=== PATIENT | male | born 1955 | race American Indian/Alaskan Native ===

== ENCOUNTER 2018-05-01 06:28 | Day surgery (SDC) | payer BC ==
[2018-05-01] MEDS ORDERED: NACL 0.9% 500 ML 500 ML IV SCH (07:00)
[2018-05-01] MEDS ORDERED: HEPARIN 10,000 UNITS/10 ML ONE (08:21)
[2018-05-01] MEDS ORDERED: HEPARIN/NS 5000 UNIT/500ML(CATH LAB) 1,000 ML IR ONE (08:21)
[2018-05-01] MEDS ORDERED: SUBLIMAZE ONE (08:21)
[2018-05-01] MEDS ORDERED: VERSED ONE (08:21)
[2018-05-01] MEDS ORDERED: NITROGLYCERIN SYRINGE 0 ML ONE (08:22)
[2018-05-01] MEDS ORDERED: XYLOCAINE 2% INFILTRATI ONE (08:30)
--- NOTE | 2018-05-01 11:04 | Cardiac Catherization Report ---
INDICATION FOR PROCEDURE: The patient is a 63-year-old -[place] gentleman with history of known coronary artery disease, status post bypass surgery done in 2002, also with sequential graft of BURRELL to the second diagonal and LAD, saphenous vein graft to the first diagonal and saphenous vein graft to the PDA. During the surgery, the patient was noted to have significant calcification throughout the vessels. He is getting short of breath on moderate exertion. No chest pain and has abnormal nuclear imaging suggesting lateral wall ischemia. Hence, he is scheduled for cardiac catheterization for definitive diagnosis and treatment. The patient is aware of the procedure, potential complications and alternatives of therapy available. DESCRIPTION OF PROCEDURE: The patient was brought to the catheterization laboratory. He was evaluated for moderate sedation and he was felt to be appropriate and received IV Versed and fentanyl around 9:02 a.m. Subsequently, local anesthesia was given in the right groin and right femoral artery puncture was made using 5-Micronesian micropuncture needle and using fluoroscopy. Initially, a 5-Micronesian sheath was introduced and 5-Micronesian multipurpose catheter was used, but subsequently this was changed to 6-Micronesian sheath and 5-Micronesian multipurpose catheter. Angiograms of the left coronary artery were obtained using JL5 catheter, JR4 catheter was used to obtain the angiograms of the right coronary artery. Vein graft angiograms were obtained using multipurpose catheter. A 5-Micronesian multipurpose catheter was used to obtain the angiograms of the mammary graft. At the end of the procedure, angiograms of the right femoral artery were obtained. When it was felt appropriate 6-Micronesian Perclose device was used in a standard fashion and good hemostasis was achieved without any difficulty. No hematoma noted. The patient tolerated the procedure well. The patient was monitored for sedation after 9:59 a.m. The patient was continuously monitored with hemodynamic monitoring, EKG, and pulse oximetry. No complication was asymptomatic and vital signs have been stable throughout the procedure. Following findings were noted. HEMODYNAMICS: 1. Opening aortic pressure 115/66. Left ventricular pressure 115/24. No gradient across the aortic valve. Estimated ejection fraction 55-60%. 2. Left ventriculogram done in XIONG projection using hand injection showed normal sized left ventricle with normal contractility. Mitral regurgitation could not be evaluated. 3. Aortogram was performed at the end of the procedure using pigtail catheter. This showed moderately dilated left ventricle measuring 4.5 cm or more. Aortogram revealed at least 3+ maybe 4+ aortic regurgitation and left ventricular size and function were found to be normal. 4. Right coronary artery dominant vessel shows diffuse disease, particularly in the proximal part, 60-70% lesion noted. PDA is diffusely diseased and showing 80% proximal and 90% mid lesion. 5. Saphenous vein graft to the PDA appears to be occluded. 6. Left coronary artery arises normally from left coronary cusp. Left main without significant disease. Left circumflex artery represented by large marginal branch. This marginal branch shows 80% proximal to mid lesion, which is focal and 70% diffuse distal disease. This vessel is not bypassed. 7. LAD shows severe ostial stenosis and proximal disease and proximal diagonal branch, medium to large vessel shows diffuse proximal disease 80-90% and also mid lesion. Distal vessel without significant disease. 8. Saphenous vein graft to the first diagonal branch is occluded. 9. LAD as mentioned above showed severe ostial and proximal LAD disease. LAD is filling from left internal mammary graft, which is grafted to the second diagonal and mid LAD. LAD itself without significant disease and second diagonal branch also without significant disease, small to medium caliber vessel. 10. Collaterals none. FINAL IMPRESSION: 1. Dilated aortic root with [id number] aortic regurgitation. 2. Normal sized LV with normal contractility. Ejection fraction is normal. 3. Severe coronary artery disease with ostial LAD and proximal LAD disease; however LAD and second diagonal branch is protected by sequential graft from the left internal mammary. Left internal mammary itself is widely patent. 4. Circumflex artery is not protected and has focal mid and severe distal disease. PDA is bypassed; however, this graft appears to be occluded. RCA shows significant ostial and proximal disease in addition to PDA, which shows diffuse disease. At this time, the patient has significant aortic regurgitation along with aortic root dilatation with normal LV function and also LAD and second diagonal branch are protected. However, circumflex artery and RCA have severe disease, but not protected. At this time, the patient's symptoms mostly appeared to be shortness of breath, which may be related to his aortic regurgitation. He does have significant coronary disease in the RCA and circumflex artery as well as coronary disease. Consideration can be given for medical therapy versus percutaneous intervention. However, his symptoms are appeared to be mostly related to his underlying aortic regurgitation. May need to consider aortic valve surgery. The patient tolerated the procedure well. No untoward complications were noted. Findings were explained to the patient. Good hemostasis was achieved with Perclose device. JOB# [id number] DEJAN/SOFIYA
--- NOTE | 2018-05-01 12:01 | Short Stay Summary ---
Short Stay Documentation Date of service: 05/01/18 - History H&P: obtained from office - Allergies and Medications Current Medications: Allergies No Known Allergies Allergy (Verified 05/01/18 06:57) Home Medications Medication Instructions Recorded Confirmed Last Taken Type Aspirin EC [Aspirin Enteric Coated 81 mg PO DAILY 05/01/18 05/01/18 05/01/18 04: 30 History TAB] AtorvaSTATin [Lipitor] 40 mg PO DAILY 05/01/18 05/01/18 05/01/18 04:30 History Metoprolol [Lopressor TAB] 25 mg PO DAILY 05/01/18 05/01/18 05/01/18 History 0430 amLODIPine [Norvasc] 10 mg PO DAILY 05/01/18 05/01/18 05/01/18 History 0430 Active Medications Sodium Chloride (Nacl 0.9% 500 Ml) 500 mls @ 50 mls/hr IV DIRECT JAYSHREE Stop: 05/01/18 16:59 Last Admin: 05/01/18 08:23 Dose: 50 mls/hr - Brief post op/procedure progress note Date of procedure: 05/01/18 Pre-op diagnosis: CAD Post-op diagnosis: same Procedure: [facility] - see cath report Anesthesia: local Estimated blood loss: none Condition: stable - Disposition Condition at discharge: Stable Disposition: [id number] TO HOME OR SELFCARE - Discharge Diagnoses (1) CAD (coronary artery disease) Status: Chronic (2) History of coronary artery bypass graft Status: Chronic Short Stay Discharge Plan Activity: advance as tolerated Diet: low fat, low cholesterol, low salt Wound: open to air, keep clean and dry, per your surgeon's advice Follow up with: GABE ARCINIEGA MD [Primary Care Provider] - 7 Days
[2018-05-01 13:35] VITALS: BP 113/60
== END 2018-05-01 14:41 | disposition home or self-care (01) ==
LOC: CATHLABREC 06:28
PROVIDERS: ATTEND Internal Medicine
DX: I25.810 Atherosclerosis of coronary artery bypass graft(s) without angina pectoris (principal); I35.1 Nonrheumatic aortic (valve) insufficiency; I77.819 Aortic ectasia, unspecified site; I10 Essential (primary) hypertension; E78.00 Pure hypercholesterolemia, unspecified; Z79.82 Long term (current) use of aspirin; Z79.899 Other long term (current) drug therapy; Z95.1 Presence of aortocoronary bypass graft; Z98.890 Other specified postprocedural states; Z80.9 Family history of malignant neoplasm, unspecified
CPT/HCPCS: 93005; 93010; 93459; 93567; 99156; 99157; C1760; C1894; J1644; J2250; J3010; J7040; Q9967